=== PATIENT | female | born 1960 | race Native Hawaiian/Other Pacific Islander ===

== ENCOUNTER 2020-07-25 15:10 | Outpatient (CLI) | payer OTHER ==
[~2020-07-25 15:10] MED LIST: LORAZEPAM1 MG OR; METF500T PO; METOPROLOL25 M1 OR; PAROXETINE10 MG PO
== END 2020-07-25 19:24 | disposition home or self-care (01) ==
LOC: US 15:10
PROVIDERS: ATTEND Obstetrics & Gynecology
DX: Z13.820 Encounter for screening for osteoporosis (principal); Z85.3 Personal history of malignant neoplasm of breast; N95.8 Other specified menopausal and perimenopausal disorders